=== PATIENT | male | born 1955 | race Caucasian/White ===

== ENCOUNTER 2022-06-08 06:22 | Day surgery (SDC) | payer MEDICARE, BC ==
[2022-06-07 09:11] VITALS: BMI 35.2
[2022-06-08 07:17] LABS: PTT 33.7 sec (22.9-36.1); Prothrombin Time 13.3 sec (12.0-14.7)
[2022-06-08 07:20] LABS: Mean Corpuscular Hemoglobin 33.6 pg (27.0-31.0); Platelet Count 220 thou/uL (130-400); RBC Distribution Width 13.7 % (11.5-14.5); Red Blood Cell (RBC) Count 5.08 mill/uL (4.70-6.10); White Blood Cell (WBC) Count 7.6 thou/uL (4.8-10.8)
[2022-06-08 07:27] LABS: Anion Gap 15 mmol/L (10-20); BUN (Urea Nitrogen) 11 mg/dL (8.4-25.7); Calc. Creatinine Clearance 144 mL/min (70-130); Calcium 9.4 mg/dL (7.8-10.44); Carbon Dioxide 24 mmol/L (23-31); Chloride 107 mmol/L (98-107); Estimated GFR 96; Glucose 107 mg/dL (80-115); Potassium 4.8 mmol/L (3.5-5.1); Sodium 141 mmol/L (136-145)
== END 2022-06-08 07:51 | disposition home or self-care (01) ==
LOC: SDC 06:22
PROVIDERS: ATTEND Internal Medicine Cardiovascular Disease
DX: I48.0 Paroxysmal atrial fibrillation (principal); I25.10 Atherosclerotic heart disease of native coronary artery without angina pectoris; I11.0 Hypertensive heart disease with heart failure; I50.30 Unspecified diastolic (congestive) heart failure; E78.2 Mixed hyperlipidemia; J44.9 Chronic obstructive pulmonary disease, unspecified; I89.0 Lymphedema, not elsewhere classified; F17.210 Nicotine dependence, cigarettes, uncomplicated; E66.9 Obesity, unspecified; Z68.35 Body mass index [BMI] 35.0-35.9, adult; Z53.9 Procedure and treatment not carried out, unspecified reason; Z79.01 Long term (current) use of anticoagulants; Z79.899 Other long term (current) drug therapy
CPT/HCPCS: 36415; 80048; 85027; 85610; 85730; 93005; 93010

== ENCOUNTER 2023-07-13 22:34 | Inpatient (IN) | payer MEDICARE, BC ==
[2023-07-13 22:56] LABS: #Basophils 0.1 thou/uL (0.0-0.2); #Eosinphils 0.3 thou/uL (0.0-0.7); #Monocytes 1.3 thou/uL (0.11-0.59); #Neutrophils 6.2 thou/uL (1.40-6.50); %Basophils 0.5 % (0.0-1.0); %Eosinophils 3.5 % (0.0-10.0); %Lymphocytes 17.6 % (21.0-51.0); %Monocytes 13.1 % (0.0-10.0); Hematocrit 49.7 % (42.0-52.0); Hemoglobin 15.7 g/dL (14.0-18.0); Mean Corpuscular HGB CONC 31.6 g/dL (32.0-36.0); Mean Corpuscular Hemoglobin 26.9 pg (27.0-31.0); Mean Corpuscular Volume 85.1 fl (78.0-98.0); Mean Platelet Volume 10.3 fL (7.4-10.4); Platelet Count 271 10x3/uL (130-400); RBC Distribution Width 19.2 % (11.5-14.5); Red Blood Cell (RBC) Count 5.84 mill/uL (4.70-6.10); White Blood Cell (WBC) Count 9.6 10x3/uL (4.8-10.8)
[2023-07-13 23:18] LABS: AST (SGOT) 16 U/L (5-34); Albumin 3.9 g/dL (3.4-4.8); Alkaline Phosphatase 55 U/L (40-110); Anion Gap 13 mmol/L (10-20); BUN (Urea Nitrogen) 12 mg/dL (8.4-25.7); Bilirubin, Total 0.4 mg/dL (0.2-1.2); Calc. Creatinine Clearance 0 mL/min (70-130); Calcium 9.2 mg/dL (7.8-10.44); Carbon Dioxide 28 mmol/L (23-31); Chloride 105 mmol/L (98-107); Estimated GFR 95; Globulin 2.7 g/dL (2.4-3.5); Glucose 91 mg/dL (80-115); Potassium 3.8 mmol/L (3.5-5.1); Protein, Total 6.6 g/dL (5.8-8.1); Sodium 142 mmol/L (136-145)
[2023-07-13 23:29] LABS: Troponin I 0.018 ng/mL (< 0.028)
[2023-07-13 23:30] LABS: ALT (SGPT) 13 U/L (8-55)
[2023-07-14 00:22] LABS: Magnesium 1.8 mg/dL (1.6-2.6)
[2023-07-14] MEDS ORDERED: dilTIAZem 25 MG/5 ML VIAL ONE (00:29)
[2023-07-14] MEDS ORDERED: dilTIAZem 125 MG/25 ML SDV ONE (01:51)
[2023-07-14] MEDS ORDERED: Sodium Chloride 0.9% 100 ML ONE (01:51)
[2023-07-14] MEDS ORDERED: Acetaminophen 325 MG TAB ONE ×2 (02:29→09:30)
[2023-07-14] MEDS ORDERED: fentaNYL 50 mcg/mL 1 mL Vial ONE (02:30)
[2023-07-14] MEDS ORDERED: Calcium Carbonate 500 MG ChewTAB PO PRN (03:27)
[2023-07-14] MEDS ORDERED: Ondansetron ODT 4 MG TAB PO PRN (03:27)
[2023-07-14] MEDS ORDERED: Senokot S 8.6-50 MG TAB PO PRN (03:27)
[2023-07-14] MEDS ORDERED: Acetaminophen 325 MG TAB PO PRN (03:27)
[2023-07-14] MEDS ORDERED: Famotidine 20 MG TAB ONE (08:40)
[2023-07-14] MEDS ORDERED: Furosemide 40 MG TAB ONE (08:40)
[2023-07-14] MEDS: Dronedarone HCl 400 MG TAB PO SCH (08:45)
[2023-07-14] MEDS: Furosemide 40 MG TAB PO SCH ×2 (08:45→14:58)
[2023-07-14] MEDS: Famotidine 20 MG TAB PO SCH ×2 (08:45→20:17)
[2023-07-14] MEDS: Apixaban 5 MG TAB PO SCH ×2 (08:45→20:17)
[2023-07-14] MEDS: Mometasone 100 MCG HFA INHALER (RT USE) INH SCH ×2 (09:39→19:18)
[2023-07-14] MEDS: Ipratropium/Albuterol 3 ML NEB NEB SCH ×4 (09:44→23:29)
[2023-07-14] MEDS: Rosuvastatin 10 MG TAB PO SCH (10:47)
[2023-07-14] MEDS: dilTIAZem 125 MG in Sodium Chloride 0.9% 100 ML IVPB SCH (14:54)
[2023-07-14 18:07] VITALS: BMI 34.9
[2023-07-14] MEDS: HYDROcodone/Acetaminophen 10/325 mg Tablet PO PRN (22:03)
[2023-07-15] MEDS: dilTIAZem 125 MG in Sodium Chloride 0.9% 100 ML IVPB SCH ×2 (05:13→15:53)
[2023-07-15] MEDS: Mometasone 100 MCG HFA INHALER (RT USE) INH SCH ×2 (08:03→18:48)
[2023-07-15] MEDS: Ipratropium/Albuterol 3 ML NEB NEB SCH ×3 (08:04→18:41)
[2023-07-15] MEDS: Dronedarone HCl 400 MG TAB PO SCH (09:39)
[2023-07-15] MEDS: Furosemide 40 MG TAB PO SCH (09:39)
[2023-07-15] MEDS: Rosuvastatin 10 MG TAB PO SCH (09:40)
[2023-07-15] MEDS: Famotidine 20 MG TAB PO SCH ×2 (09:40→20:31)
[2023-07-15] MEDS: Apixaban 5 MG TAB PO SCH ×2 (09:40→20:31)
[2023-07-15] MEDS ORDERED: Melatonin 3 MG TAB PO PRN (10:02)
[2023-07-15] MEDS: HYDROcodone/Acetaminophen 10/325 mg Tablet PO PRN (10:18)
[2023-07-15] MEDS: Lidocaine 4% Patch TD SCH (11:43)
[2023-07-15] MEDS: Furosemide 20 MG TAB PO SCH (13:29)
[2023-07-15] MEDS ORDERED: Lidocaine 1% PF 5 ML VIAL ONE (16:19)
[2023-07-15] MEDS ORDERED: PROPOFOL 200 MG/20 ML VIAL ONE (16:19)
[2023-07-15] MEDS ORDERED: Electrolyte Replacement Protocol 1 EACH FS SCH (18:30)
[2023-07-15] MEDS: Transdermal Patch Removal TOP SCH (20:32)
[2023-07-16] MEDS: Ipratropium/Albuterol 3 ML NEB NEB SCH ×5 (00:01→23:05)
[2023-07-16] MEDS ORDERED: dilTIAZem 25 MG/5 ML VIAL SLOW IVP SCH (02:30)
[2023-07-16] MEDS ORDERED: Digoxin 0.5 MG/2 ML AMP SLOW IVP SCH (02:30)
[2023-07-16] MEDS: dilTIAZem 125 MG in Sodium Chloride 0.9% 100 ML IVPB SCH (03:32)
[2023-07-16 06:42] LABS: Magnesium 1.6 mg/dL (1.6-2.6)
[2023-07-16] MEDS: Mometasone 100 MCG HFA INHALER (RT USE) INH SCH ×2 (08:07→18:21)
[2023-07-16] MEDS: Dronedarone HCl 400 MG TAB PO SCH ×2 (08:42→20:09)
[2023-07-16] MEDS: Apixaban 5 MG TAB PO SCH ×2 (08:42→20:09)
[2023-07-16] MEDS: Famotidine 20 MG TAB PO SCH ×2 (08:42→20:09)
[2023-07-16] MEDS: Furosemide 20 MG TAB PO SCH ×2 (08:42→13:03)
[2023-07-16] MEDS: Lidocaine 4% Patch TD SCH (08:42)
[2023-07-16] MEDS: Rosuvastatin 10 MG TAB PO SCH (08:42)
[2023-07-16] MEDS ORDERED: Magnesium 2 GM/50 ML(in water) 2 GM in Premix 1 BAG IVPB SCH (11:00)
[2023-07-16] MEDS: HYDROcodone/Acetaminophen 10/325 mg Tablet PO PRN ×2 (13:03→20:09)
[2023-07-16] MEDS: Transdermal Patch Removal TOP SCH (20:10)
[2023-07-17] MEDS: dilTIAZem 125 MG in Sodium Chloride 0.9% 100 ML IVPB SCH ×2 (05:47→20:19)
[2023-07-17 06:02] LABS: #Eosinphils 0.3 thou/uL (0.0-0.7); #Monocytes 1.6 thou/uL (0.11-0.59); #Neutrophils 7.9 thou/uL (1.40-6.50); %Basophils 0.2 % (0.0-1.0); %Eosinophils 2.6 % (0.0-10.0); %Lymphocytes 10.3 % (21.0-51.0); %Monocytes 14.7 % (0.0-10.0); %Neutrophils 71.8 % (42.0-75.0); Hematocrit 52.4 % (42.0-52.0); Mean Corpuscular HGB CONC 30.5 g/dL (32.0-36.0); Mean Corpuscular Hemoglobin 26.5 pg (27.0-31.0); Mean Corpuscular Volume 86.8 fl (78.0-98.0); Mean Platelet Volume 9.9 fL (7.4-10.4); Platelet Count 254 10x3/uL (130-400); RBC Distribution Width 18.9 % (11.5-14.5); Red Blood Cell (RBC) Count 6.04 mill/uL (4.70-6.10)
[2023-07-17 06:50] LABS: Anion Gap 14 mmol/L (10-20); BUN (Urea Nitrogen) 9 mg/dL (8.4-25.7); Calc. Creatinine Clearance 154 mL/min (70-130); Calcium 8.8 mg/dL (7.8-10.44); Carbon Dioxide 31 mmol/L (23-31); Chloride 98 mmol/L (98-107); Estimated GFR 98; Glucose 86 mg/dL (80-115); Magnesium 2.4 mg/dL (1.6-2.6); Potassium 3.2 mmol/L (3.5-5.1); Sodium 140 mmol/L (136-145)
[2023-07-17] MEDS ORDERED: Albuterol 2.5 MG/0.5 ML NEB ONE (06:51)
[2023-07-17] MEDS ORDERED: PROPOFOL 20 ML ONE (06:56)
[2023-07-17] MEDS: Ipratropium/Albuterol 3 ML NEB NEB SCH ×5 (07:30→23:17)
[2023-07-17] MEDS: Mometasone 100 MCG HFA INHALER (RT USE) INH SCH ×2 (07:31→19:20)
[2023-07-17] MEDS ORDERED: Digoxin 0.5 MG/2 ML AMP ONE (07:35)
[2023-07-17] MEDS ORDERED: Potassium Chloride 20 MEQ TAB PO SCH (08:00)
[2023-07-17] MEDS: Famotidine 20 MG TAB PO SCH ×2 (08:35→20:08)
[2023-07-17] MEDS: HYDROcodone/Acetaminophen 10/325 mg Tablet PO PRN ×2 (08:36→16:09)
[2023-07-17] MEDS: Rosuvastatin 10 MG TAB PO SCH (08:37)
[2023-07-17] MEDS: Apixaban 5 MG TAB PO SCH ×2 (08:39→20:09)
[2023-07-17] MEDS: Furosemide 20 MG TAB PO SCH ×2 (08:39→13:37)
[2023-07-17] MEDS: Lidocaine 4% Patch TD SCH (08:39)
[2023-07-17] MEDS ORDERED: dilTIAZem CD 180 MG CAP PO SCH (09:00)
[2023-07-17] MEDS ORDERED: Digoxin 0.5 MG/2 ML AMP SLOW IVP SCH (10:00)
[2023-07-17] MEDS ORDERED: Digoxin 0.25 MG TAB PO SCH (12:00)
[2023-07-17] MEDS: Cyclobenzaprine 10 MG TAB PO PRN (12:17)
[2023-07-17] MEDS: Diclofenac 1% 50 GM TOPICAL GEL TP SCH ×3 (13:37→20:09)
[2023-07-17] MEDS: Transdermal Patch Removal TOP SCH (20:09)
[2023-07-17] MEDS: dilTIAZem CD 180 MG CAP PO SCH (20:09)
[2023-07-18 04:15] LABS: #Eosinphils 0.3 thou/uL (0.0-0.7); #Monocytes 2.1 thou/uL (0.11-0.59); #Neutrophils 7.9 thou/uL (1.40-6.50); %Basophils 0.3 % (0.0-1.0); %Eosinophils 2.5 % (0.0-10.0); %Lymphocytes 12.6 % (21.0-51.0); %Monocytes 17.4 % (0.0-10.0); %Neutrophils 66.9 % (42.0-75.0); Hemoglobin 16.2 g/dL (14.0-18.0); Mean Corpuscular HGB CONC 30.6 g/dL (32.0-36.0); Mean Corpuscular Hemoglobin 26.5 pg (27.0-31.0); Mean Corpuscular Volume 86.7 fl (78.0-98.0); Mean Platelet Volume 9.7 fL (7.4-10.4); Platelet Count 234 10x3/uL (130-400); RBC Distribution Width 18.8 % (11.5-14.5); Red Blood Cell (RBC) Count 6.11 mill/uL (4.70-6.10); White Blood Cell (WBC) Count 11.8 10x3/uL (4.8-10.8)
[2023-07-18 04:45] LABS: Anion Gap 17 mmol/L (10-20); BUN (Urea Nitrogen) 10 mg/dL (8.4-25.7); Calc. Creatinine Clearance 152 mL/min (70-130); Calcium 8.7 mg/dL (7.8-10.44); Carbon Dioxide 26 mmol/L (23-31); Chloride 100 mmol/L (98-107); Estimated GFR 98; Glucose 108 mg/dL (80-115); Magnesium 1.7 mg/dL (1.6-2.6); Potassium 3.8 mmol/L (3.5-5.1); Sodium 139 mmol/L (136-145)
[2023-07-18] MEDS: Ipratropium/Albuterol 3 ML NEB NEB SCH ×2 (06:22→12:28)
[2023-07-18] MEDS: Mometasone 100 MCG HFA INHALER (RT USE) INH SCH (06:33)
[2023-07-18] MEDS ORDERED: Magnesium 2 GM/50 ML(in water) 2 GM in Premix 1 BAG IVPB SCH (08:00)
[2023-07-18] MEDS: Apixaban 5 MG TAB PO SCH (08:12)
[2023-07-18] MEDS: Cyclobenzaprine 10 MG TAB PO PRN (08:12)
[2023-07-18] MEDS: HYDROcodone/Acetaminophen 10/325 mg Tablet PO PRN (08:12)
[2023-07-18] MEDS: Lidocaine 4% Patch TD SCH (08:13)
[2023-07-18] MEDS: Diclofenac 1% 50 GM TOPICAL GEL TP SCH ×2 (08:13→12:59)
[2023-07-18] MEDS: Rosuvastatin 10 MG TAB PO SCH (08:13)
[2023-07-18] MEDS: Famotidine 20 MG TAB PO SCH (08:13)
[2023-07-18] MEDS: dilTIAZem CD 180 MG CAP PO SCH (08:13)
[2023-07-18] MEDS: Furosemide 20 MG TAB PO SCH (08:13)
[2023-07-18] MEDS ORDERED: Digoxin 0.25 MG TAB PO SCH (09:00)
[2023-07-18 13:01] VITALS: BP 121/66; TEMP 97.7
== END 2023-07-18 15:55 | disposition home or self-care (01) | DRG 308 ==
LOC: ERS 22:34 → ERHOLD 07-14 03:07 → 2SW 07-14 11:47 → OBSVTOIN 07-14 15:27
PROVIDERS: ADMIT Student in an Organized Health Care Education/Training Program; ATTEND Family Medicine
PROC: 5A2204Z Restoration of Cardiac Rhythm, Single (ICD-10-PCS; 2023-07-15)
PROC: 5A2204Z Restoration of Cardiac Rhythm, Single (ICD-10-PCS; principal; 2023-07-17)
PROC: 5A09357 Assistance with Respiratory Ventilation, Less than 24 Consecutive Hours, Continuous Positive Airway Pressure (ICD-10-PCS; 2023-07-17)
DX: I48.21 Permanent atrial fibrillation (principal); I50.33 Acute on chronic diastolic (congestive) heart failure; J96.11 Chronic respiratory failure with hypoxia; I11.0 Hypertensive heart disease with heart failure; E66.01 Morbid (severe) obesity due to excess calories; J44.9 Chronic obstructive pulmonary disease, unspecified; G47.33 Obstructive sleep apnea (adult) (pediatric); F17.210 Nicotine dependence, cigarettes, uncomplicated; G47.00 Insomnia, unspecified; Z98.890 Other specified postprocedural states; Z68.35 Body mass index [BMI] 35.0-35.9, adult; Z79.899 Other long term (current) drug therapy; E78.2 Mixed hyperlipidemia; I48.92 Unspecified atrial flutter
CPT/HCPCS: 36415; 71045; 80048; 80053; 83735; 83880; 84484; 85025; 92960; 93005; 93010; 93306; 94640; 94660; 94664; J1160; J2704; J3010; J3475; J3490; J7611; J7620